=== PATIENT | male | born 2000 | race Caucasian/White ===

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

== ENCOUNTER 2020-04-14 08:20 | Emergency (ER) | payer MEDICAID, SELFPAY ==
[2020-04-14 08:28] VITALS: BP 119/72; PULSE 83; RESP 15; TEMP 36.6; O2SAT 98; BMI 22.8
--- NOTE | 2020-04-14 08:31 | XR_ITS ---
PROCEDURE: XR FOOT LT 2V CLINICAL INDICATION: pain/swelling COMPARISON: No exams were available for comparison FINDINGS: No fracture or dislocation. No lytic or blastic change. There is normal mineralization. The joint spaces are well-preserved. No significant degenerative/arthritic changes. No erosive changes evident. Other findings:None. IMPRESSION: No acute findings. Dictated by: Roman King MD 04/14/2020 12:54 Roman King MD in [place] 04/14/2020 12:54
--- NOTE | 2020-04-14 08:53 | HMH.EDLOEX ---
ED Disposition Clinical Impression: Sprain of left foot Qualifiers: Encounter type: initial encounter Qualified Code(s): S93.602A - Unspecified sprain of left foot, initial encounter Disposition: Home, Self-Care Condition on Discharge: Good Instructions: DI for Foot Sprain Prescriptions: Ibuprofen [Ibuprofen 800mg Tablet] 800 mg PO TIDP PRN #20 tab PRN Reason: Moderate Pain Transmission Status: Pending to [facility] #[id number] Referrals: Elijah Collins MD [Primary Care Provider] - - Critical Care Critical Care Time: No Attestation: On 04/14/20, the high probability of a clinically significant, sudden or life threatening deterioration of the following system(s) required my full and direct attention, intervention and personal management. The time I documented below is in addition to time spent performing reported procedures but includes the following listed in this critical care notation. Medical Decision Making - Medical Records Medical records reviewed: Yes: I reviewed the patient's medical records. - Tonny Inquiry Pt receiving controlled substance: No Vital Signs: 04/14/20 08:28 Temperature 97.9 F Temperature Source Oral Pulse Rate [Bilateral Radial] 83 Respiratory Rate 15 Blood Pressure [Right Arm] 119/72 Blood Pressure Mean [Right Arm] 87 02 Sat by Pulse Oximetry 98 Oxygen Delivery Method Room Air Orders (Tests/Meds): ED MEDICATIONS Discontinued Medications Generic Name Dose Route Start Last Admin Trade Name Freq PRN Reason Stop Dose Admin Ibuprofen 800 mg 04/14/20 08:45 04/14/20 09:01 Ibuprofen 400 Mg Tablet PO 04/14/20 08:46 800 mg ONCE ONE Administration ORDERS Category Date Time Status Foot XR left 2 views [XR foot LT 2V] Stat Exams 04/14/20 08:31 Taken - Radiology Data #1 Image(s): Foot/Toes Image Reviewed: Yes I reviewed the patient's radiology results, Yes I reviewed the patient's radiology image Preliminary Findings: Normal/NAD, No Fracture Seen - Reevaluation(s) Time: 09:32 Reevaluation #1: On reevaluation, patient is feeling better. Pain is improved. Patient is ambulatory. Patient needs a follow-up with orthopedics. Given strict return precautions. Verbalized understanding. Medical Decision Narrative: 19-year-old male presenting with left foot pain. Concern for fracture. X-ray obtained. Lower Extremity Injury HPI - General Chief Complaint: Extremity Injury, Lower Stated Complaint: Ao 04/14/20 lt foot pain Time Seen by Provider: 04/14/20 08:35 Mode of Arrival: Ambulatory Limitations: No Limitations Description of Symptoms (Recalled from ER Triage Doc. by RN): pt presents to ed with c/o left great toe joint pain after kickboxing. - History of Present Illness HPI Narrative: 19-year-old male presented to the emergency department with left foot pain. Patient states that he has had this for the last 2 weeks. He recently started kickboxing and states that he caught his foot inside someone's leg 2 weeks ago. He has been complaining of some pain over his great toe and the dorsal aspect of his foot since then. Is worse when he walks. He states that the pain got worse today which prompted him come to the emergency department. Denies any other injuries. No lacerations or abrasions. No headache, no change in vision. No chest pain or shortness of breath. No fevers or chills. - Related Data Previous Rx's Medication Instructions Recorded Ibuprofen [Ibuprofen 800mg 800 mg PO TIDP PRN #20 tab 04/14/20 Tablet] Allergies Allergy/AdvReac Type Severity Reaction Status Date / Time No Known Allergies Allergy Verified 04/14/20 08:31 [facility] History - Hepatitis A Screen Drug use history?: No High risk sexual behaviors?: No History of sexually transmitted infection?: No Currently employed?: No Childcare worker?: No Do you have indoor plumbing?: Yes Do you have electricity?: Yes Attestation statement
[2020-04-14 09:38] VITALS: BP 115/71; PULSE 76; RESP 15; TEMP 36.6; O2SAT 99
== END 2020-04-14 09:41 | disposition home or self-care (01) ==
PROVIDERS: Emergency Provider Emergency Medicine; PCP Emergency Medicine
DX: S93.602A Unspecified sprain of left foot, initial encounter (principal); X50.3XXA Overexertion from repetitive movements, initial encounter; Y93.59 Activity, other involving other sports and athletics played individually; Y92.89 Other specified places as the place of occurrence of the external cause; F17.210 Nicotine dependence, cigarettes, uncomplicated
CPT/HCPCS: 73620; 99282

== ENCOUNTER 2021-07-31 14:35 | Emergency (ER) | payer OTHER, SELFPAY ==
[2021-07-31 14:43] VITALS: BP 0/0; PULSE 0; RESP 0; TEMP -17.7; TEMP 0
== END 2021-07-31 14:46 | disposition left against medical advice (07) ==
LOC: UTC 14:37
PROVIDERS: Emergency Provider Nurse Practitioner Family; PCP Emergency Medicine
DX: Z53.21 Procedure and treatment not carried out due to patient leaving prior to being seen by health care provider (principal)
CPT/HCPCS: C9803; U0003; U0005

== ENCOUNTER 2022-03-07 11:23 | Emergency (ER) | payer SELFPAY ==
[2022-03-07 11:47] VITALS: BP 127/74; PULSE 102; RESP 18; TEMP 36.6; O2SAT 98; BMI 24.3
[2022-03-07 13:15] VITALS: BP 127/74; PULSE 102; RESP 18; TEMP 36.6; O2SAT 98; BMI 24.2
--- NOTE | 2022-03-07 13:56 | EXP.UTC ---
Discharge Plan Disposition Patient Disposition: Home, Self-Care Condition: Good Prescriptions Prescriptions: New dicyclomine 10 mg capsule 10 mg PO TID PRN (Reason: cramping) Qty: 15 0RF No Action ibuprofen 800 MG tablet 800 mg PO TIDP PRN (Reason: Moderate Pain) Qty: 20 0RF Referrals Follow up/Referrals: Elijah Collins MD [Primary Care Provider] - See instructions Activity Restrictions/Add. Instructions Additional Instructions/Restrictions: Take medication as prescribed Follow up with your Family Doctor for further evaluation and treatment Return if needed Straight to ER if any life threatening symptoms Clinical Impressions Clinical Impression: H/O irritable bowel syndrome Stand Alone Forms Stand Alone Forms: Work/School Release Instructions Patient Instructions: Irritable Bowel Syndrome, DI for Irritable Bowel Syndrome Discharge ED Provider: Karina Marrufo [facility] General Stated complaint: intestinal pain Mode of Arrival: Ambulatory Source of Information: Patient Limitations: No Limitations Time Seen by Provider: 03/07/22 13:57 Description of Symptoms (Recalled from Triage Doc. by RN): pt states that off and on for a while now the pt will eat, cramp and then after a BM the cramping goes away. Pt states he needs some notes for work due to him missing a few days over this. HEENT Symptoms (Recalled from RN notes): No Resp Symptoms (Recalled from RN notes): No Skin Symptoms (Recalled from RN notes): No MS Symptoms (Recalled from RN notes): No Functional Status (Recalled from RN notes): WNL History of Present Illness Provider Complaint: Patient states that he has hx of IBS states that he has been having an episode on and off for the last few days and hasnt been able to work so today he came in to get a work note Related Data Previous Rx's Medication Instructions Recorded ibuprofen 800 mg tablet 800 mg PO TIDP PRN Moderate Pain 04/14/20 #20 tabs dicyclomine 10 mg capsule 10 mg PO TID PRN cramping #15 caps 03/07/22 Allergies Allergy/AdvReac Type Severity Reaction Status Date / Time No Known Allergies Allergy Verified 04/14/20 08:31 Worker's Comp Is this a Worker's Comp case?: No PFSH PFSH Social History Smoking Status: Current every day smoker alcohol intake: never substance use type: denies use current occupational status: employed ROS Obtained: Yes All systems reviewed & no additional complaints except as documented and Yes Systems reviewed as appropriate & no additional complaints except as documented Constitutional Constitutional: Reports system reviewed and no additional complaints, except as documented and Denies fever(s) Cardiovascular Cardiovascular: Reports system reviewed and no additional complaints, except as documented Respiratory Respiratory: Reports system reviewed and no additional complaints, except as documented Gastrointestinal Gastrointestingal: Reports system reviewed and no additional complaints, except as documented and cramping; Denies abdominal pain, constipation or diarrhea Physical Exam General General appearance: alert and in no apparent distress ENT ENT exam: Present normal exam, normal oropharynx, mucous membranes moist and TM's normal bilaterally Respiratory Respiratory exam: Present normal lung sounds bilaterally; Absent respiratory distress or wheezes Cardiovascular Cardiovascular exam: Present regular rate, normal rhythm and normal heart sounds Abdominal Exam Abdominal exam: Present soft and normal bowel sounds; Absent distention or tenderness Neurological Exam Neurological exam: Present alert and oriented X3 Medical Decision Making Tonny Inquiry Pt receiving controlled substance: No Tonny was queried for this patient: No Vital Signs: 03/07/22 11:47 03/07/22 13:15 Temperature 97.8 F 97.8 F Temperature Source Oral Oral Pulse Rate [Left Radial] 102 H 102 H Respiratory Rate 18 18 Blood Pressure [Right Arm] 127/7
[2022-03-07 14:05] VITALS: BP 127/74; PULSE 102; RESP 18; TEMP 36.6; O2SAT 98
== END 2022-03-07 14:10 | disposition home or self-care (01) ==
PROVIDERS: Emergency Provider Nurse Practitioner; PCP Emergency Medicine
DX: K58.9 Irritable bowel syndrome, unspecified (principal)
CPT/HCPCS: 99211; G0463

== ENCOUNTER 2022-12-26 21:29 | Emergency (ER) | payer SELFPAY ==
[2022-12-26 21:33] VITALS: BP 134/75; PULSE 88; O2SAT 100
[2022-12-26 21:35] VITALS: BP 132/71; PULSE 79; RESP 15; TEMP 36.6; O2SAT 98; BMI 24.3
[2022-12-26 21:39] VITALS: BMI 24.3
--- NOTE | 2022-12-26 21:54 | HMH.EDSKAF ---
Discharge Plan Disposition Patient Disposition: Home, Self-Care Prescriptions Prescriptions: New cephalexin [cephalexin] 500 mg capsule 500 mg PO TID Qty: 30 0RF Referrals Follow up/Referrals: Elijah Collins MD [Primary Care Provider] - See instructions Clinical Impressions Clinical Impression: Foreign body of hand, left Instructions Patient Instructions: DI for Removal of Foreign Body From Skin, DI for Skin Abscess Discharge ED Provider: Dennis (ED)Elijah Skin/Abscess/FB HPI General Chief complaint: Skin/Abscess/Foreign Body Stated complaint: fish hook in left thumb AO 191 Time Seen by Provider: 12/26/22 21:45 Mode of Arrival: Family Vehicle Source of Information: Patient and Medical Record Limitations: No Limitations Description of Symptoms (Recalled from ER Triage Doc. by RN): 22 yo male ppresents with CC of left thumb with fishing hook embedded. States this occurred prior to arrival approx 1 hour. patient has no previous history of issue with this hand before. Needs tetanus History of Present Illness HPI narrative: fish hook embedded lt thumb tonight while fishing complaint: foreign body Onset (ago): hour(s) Tetanus up to date: no Location: L hand Severity: moderate Associated symptoms: denies other symptoms Related Data Previous Rx's Medication Instructions Recorded cephalexin 500 mg capsule 500 mg PO TID #30 caps 12/26/22 Allergies Allergy/AdvReac Type Severity Reaction Status Date / Time No Known Allergies Allergy Verified 04/14/20 08:31 [facility] Disclaimer: The information contained in this section may have been updated after the patient was seen, as this information can be updated by other users. Social History (Updated 03/07/22 @ 14:08 by Karina Marrufo APRN) Smoking Status: Current every day smoker alcohol intake: never substance use type: denies use current occupational status: employed Travel in the last 8 weeks: None ROS Obtained: Yes All systems reviewed & no additional complaints except as documented Physical Exam General General appearance: alert Head Head exam: normocephalic Eye Eye exam: Present PERRL and EOMI ENT ENT exam: Present mucous membranes moist Neck Neck exam: Present trachea midline Respiratory Respiratory exam: Absent respiratory distress Cardiovascular Cardiovascular exam: Present regular rate Extremities Exam Extremities exam: Present other (fishhook in distal lt thumb ) Neurological Exam Neurological exam: Present alert and CN II-XII intact Skin Skin exam: Absent rash Medical Decision Making Medical Records Medical records reviewed: Yes I reviewed the patient's medical records. Tonny Inquiry Pt receiving controlled substance: No Vital Signs: 12/26/22 21:35 Temperature 97.8 F Temperature Source Oral Pulse Rate [Right Brachial] 79 Respiratory Rate 15 Blood Pressure [Right Arm] 132/71 Blood Pressure Mean [Right Arm] 91 Blood Pressure Source [Right Arm] Automatic Cuff Blood Pressure Position [Right Arm] Sitting 02 Sat by Pulse Oximetry 98 Oxygen Delivery Method Room Air Lab Data Lab results reviewed: Yes I reviewed the patient's lab results. Orders (Tests/Meds): ED MEDICATIONS Discontinued Medications Generic Name Dose Route Start Last Admin Trade Name Freq PRN Reason Stop Dose Admin Tetanus/Diphtheria Toxoids 0.5 ml 12/26/22 21:40 12/26/22 21:42 Tetanus-Diphth Toxoid, Adult 0.5ml Syr IM 12/26/22 21:41 0.5 ml .ONCE ONE Administration Medical Decision Narrative: after digital block removed fishhook and wd dressed Procedures Foreign Body Removal Time Out Performed: Yes Site: left and hand Description of foreign body: fish hook Sedation/Analgesia: other (digital block) Technique: removal with forceps Confirmed by:: direct visualization Complications: none Post-procedure exam: awake, alert Neurovascular: no change from pre-procedure Nerve Block Nerve Block 1:
[2022-12-26 22:00] VITALS: BP 137/75; PULSE 78; RESP 18; TEMP 36.8; O2SAT 98
[2022-12-26 22:03] VITALS: BP 128/75; PULSE 81; O2SAT 100
== END 2022-12-26 22:11 | disposition home or self-care (01) ==
PROVIDERS: Emergency Provider Emergency Medicine; PCP Emergency Medicine
DX: S60.352A Superficial foreign body of left thumb, initial encounter (principal); F17.210 Nicotine dependence, cigarettes, uncomplicated; W45.8XXA Other foreign body or object entering through skin, initial encounter; Z23 Encounter for immunization
CPT/HCPCS: 10120; 90471; 90714; 96372; 99283; 99284

== ENCOUNTER 2023-02-10 14:01 | Emergency (ER) | payer SELFPAY ==
[2023-02-10 14:03] VITALS: BP 135/77; PULSE 65; RESP 16; TEMP 36.9; O2SAT 100; BMI 23.6
--- NOTE | 2023-02-10 14:13 | US_ITS ---
FINAL REPORT TECHNIQUE: Ultrasound images of the testicles were obtained bilaterally. Color Doppler images were obtained. CLINICAL HISTORY: left testicle pain and swelling FINDINGS: The right testicle measures 3.3 x 3.8 x 3.1 cm. The left testicle measures 4.1 x 2.8 x 3.3 cm. There is a small left hydrocele. There is a 4 mm epididymal cyst on the right. The left epididymis appears somewhat enlarged, may represent epididymitis. IMPRESSION: Possible left epididymitis. Reviewed, Interpreted and Dictated by David Ghotra III, MD Transcribed by Caitlin Gibbs Authenticated and [facility]
--- NOTE | 2023-02-10 14:16 | HMH.EDGENADL ---
Discharge Plan Disposition Patient Disposition: Home, Self-Care Prescriptions Prescriptions: New doxycycline hyclate 100 mg capsule 100 mg PO BID 10 Days Qty: 20 0RF Referrals Follow up/Referrals: Elijah Collins MD [Primary Care Provider] - See instructions Activity Restrictions/Add. Instructions Additional Instructions/Restrictions: Please follow-up with your urine chlamydia and gonorrhea tests and if positive have your partners tested and treated. Return with any worsening of your symptoms. Clinical Impressions Clinical Impression: Epididymitis Instructions Patient Instructions: DI for Skin Abscess Discharge ED Provider: Ines Hummel General Adult HPI General Chief complaint: Skin/Abscess/Foreign Body Stated complaint: swelling in male area Time Seen by Provider: 02/10/23 14:10 History of Present Illness HPI narrative: Patient is a 22-year-old male here with left testicle pain swelling and redness. States this is been ongoing for the last few days was not sudden in nature. States that he is in a monogamous relationship has no history of gonorrhea or chlamydia. No pus coming from his penis. States that he has significant improvement with elevation of the testicle. Related Data Previous Rx's Medication Instructions Recorded doxycycline hyclate 100 mg capsule 100 mg PO BID 10 days #20 caps 02/10/23 Allergies Allergy/AdvReac Type Severity Reaction Status Date / Time No Known Allergies Allergy Verified 02/10/23 14:31 [facility] Disclaimer: The information contained in this section may have been updated after the patient was seen, as this information can be updated by other users. Social History Smoking Status: Current every day smoker alcohol intake: never substance use type: denies use current occupational status: employed Travel in the last 8 weeks: None ROS Obtained: Yes All systems reviewed & no additional complaints except as documented Physical Exam General General appearance: alert Respiratory Respiratory exam: Present normal lung sounds bilaterally Cardiovascular Cardiovascular exam: Present regular rate exam: Present other (Left testicle swelling erythema and tenderness circumferentially no masses felt) Neurological Exam Neurological exam: Present alert and oriented X3 Medical Decision Making Tonny Inquiry Pt receiving controlled substance: No Vital Signs: 02/10/23 14:03 Temperature 98.5 F Temperature Source Oral Pulse Rate [Left] 65 Respiratory Rate 16 Blood Pressure [Right Arm] 135/77 Blood Pressure Mean [Right Arm] 96 02 Sat by Pulse Oximetry 100 Lab Data Lab Results 02/10/23 14:23: Urine Color Yellow, Urine Appearance Clear, Urine pH 6.5, Ur Specific [place] <= 1.005, Urine Protein Negative, Urine Glucose (UA) Negative, Urine Ketones Negative, Urine Blood Negative, Urine Nitrate Negative, Urine Bilirubin Negative, Urine Urobilinogen 0.2, Ur Leukocyte Esterase Negative Orders (Tests/Meds): ED MEDICATIONS Generic Name Dose Route Start Last Admin Trade Name Freq PRN Reason Stop Dose Admin Ceftriaxone Sodium 500 mg 02/10/23 15:04 Ceftriaxone 250mg Vial IM 02/10/23 15:05 ONCE ONE Doxycycline Hyclate 100 mg 02/10/23 15:04 Doxycycline Hycl 100 Mg Tablet PO 02/10/23 15:05 ONCE ONE Lidocaine HCl 0.9 ml 02/10/23 15:04 Lidocaine 1% 5ml Pf Vial IM 02/10/23 15:05 ONCE ONE Discontinued Medications Generic Name Dose Route Start Last Admin Trade Name Freq PRN Reason Stop Dose Admin Ibuprofen 800 mg 02/10/23 14:13 02/10/23 14:27 Ibuprofen 400 Mg Tablet PO 02/10/23 14:14 800 mg ONCE ONE Administration ORDERS Category Date Time Status UA [Urinalysis and Microscopic] Stat Lab 02/10/23 14:23 Results scrotum US [US Testicular] Stat Ultrasound 02/10/23 14:13 Ordered Medical Decision Narrative: 22-year-old
[2023-02-10 14:32] LABS: Microscopic, Urine URINE MICROSCOPIC (MICROSCOPIC)
[2023-02-10 14:34] LABS: Appearance,Urine CLEAR (Clear); Bilirubin,Urine Negative (Negative); Blood, Urine Negative (Negative); Color,Urine YELLOW (Yellow); Glucose,Urine (UA) Negative (Negative); Ketones,Urine Negative (Negative); Leukocyte Esterase,Urine Negative (Negative); Nitrate,Urine Negative (Negative); PH,Urine 6.5 (5.0-8.5); Protein,Urine Negative (Negative); Specific Gravity, Urine <= 1.005 (1.005-1.030); Urobilinogen,Urine 0.2 EU/dl (0.2)
[2023-02-10 15:18] LABS: Squamous Epithelial Cell,Urine Occasional #/hpf (0-5)
[2023-02-10 15:37] VITALS: BP 125/73; PULSE 68; RESP 16; TEMP 36.9; O2SAT 99
[2023-02-13 21:11] LABS: Neisseria gonorrhoeae, NAA Negative (Negative)
== END 2023-02-10 15:45 | disposition home or self-care (01) ==
PROVIDERS: Emergency Provider Student in an Organized Health Care Education/Training Program; PCP Emergency Medicine
DX: N45.1 Epididymitis (principal); F17.200 Nicotine dependence, unspecified, uncomplicated
CPT/HCPCS: 76870; 81001; 87491; 87591; 96372; 99284; J0696